=== PATIENT | male | born 1980 | race Two or more races ===

== ENCOUNTER 2023-08-09 09:13 | Day surgery (SDC) | payer OTHER, SELFPAY ==
[2023-08-05 12:16] VITALS: BMI 36.1
[2023-08-09 09:33] VITALS: BP 124/70; PULSE 72; RESP 18; TEMP 36.4; O2SAT 96; BMI 35.8
[2023-08-09] MEDS: Lactated Ringers 1,000 ML 100 ML IVCONT (09:33)
--- NOTE | 2023-08-09 10:12 | MHC.SHP ---
Pre-Procedural Eval Section A Date of Service: 08/09/23 Section B Chief Complaint: Abdominal distension (gaseous) Details of Present Illness: see H&P no changes Relevant Family History (Specify if Yes): No Relevant Social History: None Present Medications: see Short Stay Collaborative assessment Medical History: No relevant PMH History of Previous Operations: No relevant previous surgery Allergies: Allergies Allergy/AdvReac Type Severity Reaction Status Date / Time No Known Allergies Allergy Verified 08/05/23 12:16 Review of Systems Sugical H&P ROS: Negative: Constitution, Cardiovascular, Respiratory, Neurological, Psychiatric, Hem-Onc, Allergic/Immunologic, Gastrointestinal, Genitourinary, Musculoskeletal, Integumentary, Endocrine and Eyes/Ears/Nose/Throat Exam Surgical H&P Exam: Normal: HEENT, Normal: Heart, Normal: Lungs, Normal: Extremities, Normal: Abdomen, Normal: Skin and Normal: Neurological Plan Diagnosis/Plan: Unchanged I have reviewed the history and physical and performed a pertinent physical examination on my patient. No changes have occurred unless specified. Time Spent With Patient Time: Total time managing care of this patient today ____ minutes.
--- NOTE | 2023-08-09 10:15 | HO.ANESPROP2 ---
Documented by User: Renea Reynoso NP 08/08/23 09:49 HPI - Anesthesia Eval Consult details Narrative: 42yo M for Upper Endoscopy [facility] Past Medical History Medical History (Updated 08/05/23 @ 12:18 by Valentina Alvarez RN) Postprandial bloating Sleep apnea Surgical History Surgical History (Updated 08/05/23 @ 12:16 by Valentina Alvarez RN) History of tonsillectomy and adenoidectomy History of carpal tunnel surgery of right wrist Hx of arthroscopic knee surgery H/O colonoscopy Social History Social History (Updated 08/05/23 @ 12:16 by Valentina Alvarez RN) Patient Tobacco Use Status: Never used Tobacco Use of substances other than those prescribed or required for medical reasons: No Are you DNR?: No Advance Directives: No Advance Directives Information Provided: Yes Recently lost weight without trying: No Nutrition Risks: No Nutritional Risk Meds Allergies Allergy/AdvReac Type Severity Reaction Status Date / Time No Known Allergies Allergy Verified 08/05/23 12:16 Home Medications Medication Instructions Recorded Confirmed Last Taken Type No Known Home Meds 08/05/23 08/05/23 Unknown History Exam Exam Date and Time: August 08, 2023 0949 Height,Weight and Vital Signs: Height 5 ft 5 in Weight 98.43 kg Assessment and Plan Assessment Anesthesia Assessment: Chart Reviewed Documented by User: Waleska Willson DO 08/09/23 10:16 [facility] Past Medical History Medical History (Updated 08/05/23 @ 12:18 by Valentina Alvarez RN) Postprandial bloating Sleep apnea Surgical History Surgical History (Updated 08/05/23 @ 12:16 by Valentina Alvarez RN) History of tonsillectomy and adenoidectomy History of carpal tunnel surgery of right wrist Hx of arthroscopic knee surgery H/O colonoscopy History of Problems with Anesthesia: No Social History Social History (Updated 08/05/23 @ 12:16 by Valentina Alvarez RN) Patient Tobacco Use Status: Never used Tobacco Use of substances other than those prescribed or required for medical reasons: No Are you DNR?: No Advance Directives: No Advance Directives Information Provided: Yes Recently lost weight without trying: No Nutrition Risks: No Nutritional Risk Meds Allergies Allergy/AdvReac Type Severity Reaction Status Date / Time No Known Allergies Allergy Verified 08/05/23 12:16 Home Medications Medication Instructions Recorded Confirmed Last Taken Type No Known Home Meds 08/05/23 08/05/23 Unknown History Exam Exam Date and Time: August 09, 2023 1015 Height,Weight and Vital Signs: Height 5 ft 5 in Weight 98.43 kg Vital Signs Temperature 97.6 F 08/09/23 09:33 Pulse Rate 72 08/09/23 09:33 Respiratory Rate 18 08/09/23 09:33 Blood Pressure 124/70 08/09/23 09:33 Pulse Oximetry 96 08/09/23 09:33 Oxygen Delivery Method Room Air 08/09/23 09:33 Temperature 97.6 F 08/09/23 09:33 Pulse Rate 72 08/09/23 09:33 Respiratory Rate 18 08/09/23 09:33 Blood Pressure 124/70 08/09/23 09:33 Pulse Oximetry 96 08/09/23 09:33 Oxygen Delivery Method Room Air 08/09/23 09:33 Airway Mallampati Class: I TM Dist: >3cm Neck ROM: Full Loose/Missing/Broken Teeth: No Heart: S1S2 Lungs: CTAB Assessment and Plan Assessment Anesthesia Assessment: Anesthesia Plan Discussed and Chart Reviewed Final Anesthetic Review History of Problems with Anesthesia: No NPO: Yes ASA Class: II Final Preanesthetic Review: No Changes in Pt Med Stat, Meds/Allgs Chart Reviewed, Consent Obtained/Reviewed and Anes Risks/Benef Reviewed Patient Risk: Low Procedure Risk: Low Anesthetic Plan Anesthetic Plan: MAC: and Agree w/ Assess. and Plan Disposition: Standard PACU
[2023-08-09 10:38] VITALS: BP 105/67; PULSE 68; RESP 16; TEMP 36.2; O2SAT 93
[2023-08-09 10:53] VITALS: BP 117/65; PULSE 64; RESP 16; TEMP 36.2; O2SAT 95
--- NOTE | 2023-08-09 11:00 | OP_ITS ---
DATE OF SERVICE: 08/09/2023 SURGEON: Jorge Carvalho MD INDICATIONS: Abdominal distention. PREOPERATIVE DIAGNOSIS: POSTOPERATIVE DIAGNOSIS: PROCEDURE PERFORMED: Upper endoscopy with biopsy. ESTIMATED BLOOD LOSS: COMPLICATIONS: ANESTHESIA: Monitored anesthesia care. ASSISTANTS: SPECIMENS: DESCRIPTION OF PROCEDURE: A history and physical performed. The risks and benefits of the procedure were explained to the patient. Informed consent was obtained. The patient placed in the left lateral decubitus position. The Olympus video gastroscope was introduced into the esophagus, stomach, and duodenum. Examination was performed. The scope was removed. He tolerated the procedure well and was returned to the recovery room in stable condition. FINDINGS: Esophagus: The esophagus was normal. Biopsies were obtained from the EG junction. There was no esophagitis. Stomach: Showed no evidence of masses, ulcers, or polyps. Antral biopsies were obtained. Duodenum: There was mild duodenitis involving the bulb. Biopsies were obtained from the bulb and 2nd portion. IMPRESSION: Duodenitis. RECOMMENDATION: Follow up biopsy results. MD ETSSA Holman/BRYANL / [id number] MTDD
== END 2023-08-09 11:17 | disposition home or self-care (01) ==
PROVIDERS: PCP Family Medicine; Visit Provider Internal Medicine Gastroenterology
PROC: 0DJ08ZZ Inspection of Upper Intestinal Tract, Via Natural or Artificial Opening Endoscopic (ICD-10-PCS; CPT 43235; principal; 2023-08-09 10:10)
DX: R14.0 Abdominal distension (gaseous) (principal); K29.80 Duodenitis without bleeding; G47.33 Obstructive sleep apnea (adult) (pediatric)
CPT/HCPCS: 43239; 88305; 88342